=== PATIENT | male | born 1975 | race Two or more races ===

== ENCOUNTER 2018-06-24 14:22 | Emergency (ER) | payer SELFPAY ==
[~2018-06-24] VITALS: Ht 182.9 cm; Wt 68.0 kg
[2018-06-24 14:39] VITALS: BP 121/79
== END 2018-06-24 15:42 | disposition home or self-care (01) ==
LOC: ER 14:22
DX: S60.451A Superficial foreign body of left index finger, initial encounter (principal); F17.210 Nicotine dependence, cigarettes, uncomplicated; W22.8XXA Striking against or struck by other objects, initial encounter; Y93.89 Activity, other specified; Y99.8 Other external cause status; Y92.89 Other specified places as the place of occurrence of the external cause
CPT/HCPCS: 10120; 73140